=== PATIENT | female | born 1945 | race Two or more races ===

== ENCOUNTER 2021-03-21 16:16 | Emergency (ER) | payer OTHER ==
[~2021-03-21] VITALS: Ht 165.1 cm; Wt 83.0 kg
[~2021-03-21 16:16] MED LIST: EXFORGE HCT 101 EAC1 PO
[2021-03-21] MEDS ORDERED: ALDACTONE25 MG (16:30)
[2021-03-21] MEDS ORDERED: HYDRALAZINE HCL25 MG (16:30)
[2021-03-21] MEDS ORDERED: OMEPRAZOLE20 MG (16:30)
[2021-03-21] MEDS ORDERED: DOXAZOSIN MESYLA4 MG (16:31)
[2021-03-21] MEDS ORDERED: LEVO-T112 MCG (16:31)
[2021-03-21] MEDS ORDERED: CARVEDILOL ER40 MG (16:31)
[2021-03-21] MEDS ORDERED: MELATONIN10 M2 (16:31)
[2021-03-21] MEDS ORDERED: AVAPRO300 MG (16:32)
[2021-03-21] MEDS ORDERED: MOVE FREE ULTR1 EAC1 (16:32)
[2021-03-21] MEDS ORDERED: PANADOL EXTRA500 MG (16:32)
[2021-03-21] MEDS ORDERED: ULTRAM50 MG PO (18:50)
== END 2021-03-21 18:54 | disposition home or self-care (01) ==
LOC: ER 16:16
DX: S52.612A Displaced fracture of left ulna styloid process, initial encounter for closed fracture (principal); S52.592A Other fractures of lower end of left radius, initial encounter for closed fracture; S70.02XA Contusion of left hip, initial encounter; S40.022A Contusion of left upper arm, initial encounter; W01.198A Fall on same level from slipping, tripping and stumbling with subsequent striking against other object, initial encounter; Y93.89 Activity, other specified; Y92.018 Other place in single-family (private) house as the place of occurrence of the external cause; Y99.8 Other external cause status

== ENCOUNTER 2021-03-28 06:00 | Day surgery (SDC) | payer OTHER ==
[~2021-03-28 06:00] MED LIST changes: +ALDACTONE25 MG; +AVAPRO300 MG; +CARVEDILOL ER40 MG; +DOXAZOSIN MESYLA4 MG; +HYDRALAZINE HCL25 MG; +LEVO-T112 MCG; +MELATONIN10 M2; +MOVE FREE ULTR1 EAC1; +OMEPRAZOLE20 MG; +PANADOL EXTRA500 MG; +ULTRAM50 MG PO
[2021-03-28] MEDS ORDERED: DUI500 PO (12:30)
[2021-03-28] MEDS ORDERED: ALEVE220 M1 PO (12:30)
[2021-03-28] MEDS ORDERED: PERCOCET 5-3251 EACH PO (12:30)
== END 2021-03-28 16:57 | disposition home or self-care (01) ==
LOC: CIR.AMB 06:00
PROVIDERS: ATTEND Orthopaedic Surgery
DX: S52.572A Other intraarticular fracture of lower end of left radius, initial encounter for closed fracture (principal); Z20.822 Contact with and (suspected) exposure to COVID-19
CPT/HCPCS: 25609; 20902; C1776